=== PATIENT | female | born 1970 | race Caucasian/White ===

== ENCOUNTER 2022-02-04 11:21 | Emergency (ER) | payer BC ==
[2022-02-04 11:30] VITALS: RESP 18; TEMP 98.8; BMI 24.0
[2022-02-04] MEDS ORDERED: BEBTELOVIMAB (EUA) 175 MG/2 ML VIAL IVPUSH ONE (11:44)
[2022-02-04 14:07] VITALS: BP 103/63; PULSE 83
== END 2022-02-04 14:08 | disposition home or self-care (01) ==
LOC: JCOVINFU 11:21
DX: U07.1 COVID-19 (principal)
CPT/HCPCS: 99283-25; M0222; Q0222